=== PATIENT | female | born 1980 | race African-American/Black ===

== ENCOUNTER 2021-11-20 18:47 | Emergency (ER) | payer MEDICAID, OTHER ==
[~2021-11-20] VITALS: Ht 162.6 cm; Wt 91.0 kg
[2021-11-20 18:52] VITALS: BP 137/86
[2021-11-20] MEDS ORDERED: ACETAMINOPHEN 325MG TABLET PO ONE (23:45)
[2021-11-20] MEDS ORDERED: SODIUM CHLORIDE 0.9% 1,000 ML IV ONE (23:45)
[2021-11-21 01:30] LABS: CLARITY URINE CLEAR (CLEAR); COLOR URINE YELLOW (YELLOW); KETONES URINE TRACE (NEGATIVE); LEUKOCYTE ESTERASE URINE TRACE (NEGATIVE); NITRITE URINE NEGATIVE (NEGATIVE); OCCULT BLOOD URINE 1+ (NEGATIVE); PH URINE 5.5 (4.5-8.0); PROTEIN URINE 1+ (NEGATIVE); SPECIFIC GRAVITY URINE 1.027 (1.005-1.030)
[2021-11-21 01:32] LABS: CHLORIDE 101 mEq/L (98-107)
[2021-11-21 01:42] LABS: B-HCG QUANTITATIVE < 1 mIU/mL (<3)
[2021-11-21 01:46] LABS: *AMPHETAMINES SCREEN URINE NEGATIVE (NEGATIVE); *BARBITURATES SCREEN URINE NEGATIVE (NEGATIVE); *BENZODIAZEPINES SCREEN URINE NEGATIVE (NEGATIVE); *COCAINE SCREEN URINE NEGATIVE (NEGATIVE); METHADONE URINE SCREEN NEGATIVE (NEGATIVE); OPIATES URINE SCREEN NEGATIVE (NEGATIVE); PHENCYCLIDINE URINE SCREEN NEGATIVE (NEGATIVE)
[2021-11-21 01:48] LABS: CANNABINOID URINE SCREEN PRESUMTIVE POSITIVE (NEGATIVE)
[2021-11-21 01:53] LABS: BASOPHILS % 0.5 % (0.0-2.0); EOSINOPHILS % 1.3 % (0.0-5.0); LYMPHOCYTES % 22.7 % (20.0-50.0); MEAN CORPUSCULAR HEMOGLOBIN 18.3 pg (28.0-32.0); MEAN CORPUSCULAR VOLUME 65.7 fL (81.0-99.0); MEAN PLATELET VOLUME 7.8 fl (7.4-10.4); MONOCYTES % 5.6 % (2.0-8.0); NEUTROPHILS % 69.9 % (40.0-76.0); PLATELET 477 x1000/uL (130-400); RED BLOOD CELL COUNT 3.16 mill/uL (4.2-5.4); RED CELL DISTRIBUTION WIDTH 19.5 % (11.6-14.6)
[2021-11-21 02:08] LABS: HEMATOCRIT. 20.8 % (36.0-48.0); HEMOGLOBIN. 5.8 g/dL (12.0-16.0)
[2021-11-21] MEDS ORDERED: IRON SUCROSE COMPLEX 100 MG/5 ML ML IV NR (03:00)
[2021-11-21 03:52] LABS: PLATELET ESTIMATE INCREASED
== END 2021-11-21 03:39 | disposition left against medical advice (07) ==
LOC: ER 18:47 → CANBEDREQ 11-21 08:44
DX: N83.201 Unspecified ovarian cyst, right side (principal); D64.9 Anemia, unspecified; R03.0 Elevated blood-pressure reading, without diagnosis of hypertension; Z91.19 Patient's noncompliance with other medical treatment and regimen
CPT/HCPCS: 36415; 76830; 76856; 80053; 80305; 81003; 81025; 84702; 85025; 86850; 86900; 86901; 86920; 99284; J7030